=== PATIENT | female | born 1960 | race African-American/Black ===

== ENCOUNTER 2016-06-25 22:57 | Inpatient (IN) | payer BC ==
--- NOTE | ~2016-06-25 | CO ---
Unit #: [id number] #: [id number] Patient: CONSUELO JOEL [id number] [facility] [address] [place], [place] [address] [id number] I MR#: [id number] NAME: CONSUELO JOEL ROOM: CIC3 Age: 55 Sex: F Admission Date: 06/25/2016 : 1960 Attending Physician: Rosemarie Mclean M.D. Primary Care Physician: Thai Acevedo M.D. Consultation Date: 06/26/2016 CONSULTATION REPORT [facility] CONSULT The patient has requested to see a [facility] Cardiology doctor in the morning. 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 She has seen [facility] in the past, but no longer follows with anyone. She is requesting to see [facility]. According to past medical records, the patient had a cardiac catheterization on 03/11/2011 that showed nonobstructive disease. She had a cardiac stress test on 07/30/2011 which showed a small anteroseptal infarct with very mild ischemia. She had an ejection fraction of 46%. In 10/2012 she had a two-dimensional echocardiogram that an ejection fraction of 50%-55% with mild to moderate left ventricular hypertrophy, diastolic dysfunction, mild to moderate aortic regurgitation, mild mitral and tricuspid regurgitation. In 03/2003 the patient had a cardiac PET scan at [facility] that showed no ischemia or infarct and her ejection fraction was 41%. Additional past medical history includes hypertensive cardiomyopathy, hyperlipidemia, nonobstructive coronary artery disease, history of non-STEMI after her cardiac catheterization in 2010, diabetes, obesity, questionable obstructive sleep apnea and a brain aneurysm. She also has chronic bronchitis and quit smoking back in 1999. The patient reports that she had not been taking all of her medication. However, she had started taking it again a week ago after she was established with a new primary care physician. Her new primary care physician is Dr. Acevedo. The patient reports that she has been short of breath for at least one week. She reports that her shortness of breath appeared worse today. She states that she became so short of breath that she had to lie down and call for help. The patient denied any nausea, vomiting, fever, chills, cough or chest pain with her shortness of breath. The patient came to the emergency room and she was found to have a pH of 7.22, CO2 65 and pO2 70. She was placed on BiPAP. The hospitalist team is treating her for pneumonia and cardiology has been consulted for elevated BNP. The patient's EKG shows sinus tachycardia with left atrial enlargement and left ventricular hypertrophy with a rate of 113 beats per minute. Her point of care troponin was less than 0.05. Her BNP was 624. PAST MEDICAL HISTORY 1. Cardiac catheterization on 03/11/2011 showed an ejection fraction of Unit #: [id number] #: [id number] Patient: CONSUELO JOEL 60%. a. Left main normal. b. Left anterior descending artery with 20% ostial stenosis, first diagonal branch 20%. c. Circumflex artery normal. d. Right coronary artery normal. 2. Cardiac PET scan in 03/2013 at [facility] shows no ischemia or infarct. Ejection fraction 41%. 3. Two-dimensional echocardiogram in 10/2012 shows an ejection fraction of 50%-55% with mild to moderate left ventricular hypertrophy, diastolic dysfunction, mild to moderate aortic regurgitation, mitral and tricuspid regurgitation. 4. Non-ST elevation myocardial infarction after cardiac catheterization in 2010. 5. Cardiac stress test on 07/30/2011 shows small anteroseptal infarct with an ejection fraction of 46%. 6. Hypertensive cardiomyopathy. 7. Hyperlipidemia. 8. Diabetes type 2. 9. Thyroid cancer with hypothyroidism, status post thyroidectomy. 10. Gastroesophageal reflux disease. 11. Chronic bronchitis. 12. Brain aneurysm 2 x 2 mm in the posterior communicating artery on the left in 2011. 13. Right renal cyst. 14. Chronic bronchitis. 15. Reformed tobaccoism. PAST SURGICAL HISTORY 1. Cardiac catheterization as detailed above. 2. Hysterectomy. 3. Tonsillectomy. 4. Left knee surgery. 5. Thyroidectomy. 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 She reports that she did have a fall in 03/2011 and has not been working as much. She quit smoking in the year 1999. She reports that she previously smoked 1-1.5 packs per day for almost 36 yeas. She denies any alcohol or illicit drug abuse. FAMILY HISTORY The patient reports that her mother passed in her 60s from abdominal aortic aneurysm. The patient reports that her father has had tow myocardial infarctions. ALLERGIES Penicillin. HOME MEDICATIONS 1. Plavix 75 mg p.o. daily. 2. Norvasc 10 mg p.o. daily. 3. Lisinopril 10 mg p.o. daily. 4. Lopressor 25 mg p.o. daily. 5. Synthroid 300 mcg p.o. daily. 6. Victoza 1.8 mg subcutaneous daily. 7. Glipizide 10 mg p.o. b.i.d. Unit #: [id number] #: [id number] Patient: CONSUELO JOEL 8. Zocor 10 mg p.o. daily. 9. Tramadol 5 mg p.o. t.i.d. p.r.n. REVIEW OF SYSTEMS A 10-point review of systems has been done and is otherwise negative except as indicated in history of present illness. PHYSICAL EXAMINATION GENERAL: The patient is awake and alert, in no acute distress. VITALS: Temperature 97.8, heart rate 73, respiratory rate 20, blood pressure 119/75. HEENT: Head is atraumatic, normocephalic. Pupils equal, round and reactive. Extraocular movements intact. No drainage from ears or nares. NECK: Supple. Trachea midline. Normal carotid upstrokes. No lymphadenopathy or thyromegaly is appreciated. CHEST: Lungs are diminished bilaterally with crackles in the bases. No wheezes or rhonchi. HEART: S1 and S2. Regular rate and rhythm. No murmurs, rubs or gallops appreciated. ABDOMEN: Obese, soft, nontender and nondistended. Bowel sounds are positive in all four quadrants. No hepatosplenomegaly is appreciated. SKIN: Appears to be warm, dry and intact. EXTREMITIES: No clubbing, edema or cyanosis. NEUROLOGIC: The patient is alert and oriented times four. She is pleasant and conversant. No focal deficits. Cranial nerves II through XII appear to be intact. DIAGNOSTIC STUDIES IMAGING: Chest x-ray shows stable cardiomegaly with new infiltrates in the bases, right greater than left, concerning for pneumonia. LABORATORY: Vixeo-es-ngoz troponins are less than 0.05. BNP was 624. Glucose 301, BUN 16, creatinine 1.1, sodium 137, potassium 4.1, chloride 101, CO2 25, hemoglobin A1c 8.9, lactic acid 3.5. Cholesterol 206, triglycerides 99, LDL 149, HDL 37, TSH 20.74. White blood cell count 10.8, hemoglobin 13.4, hematocrit 42, platelets 329, CARDIOVASCULAR: EKG shows sinus tachycardia with LDH at a rate of 113 beats per minute. ASSESSMENT 1. Dyspnea, likely multifactorial. 2. Bilateral pneumonia, community acquired pneumonia. 3. Chronic bronchitis. 4. Fluid overload. Probable congestive heart failure. 5. Hypertensive cardiomyopathy with left ventricular ejection fraction of 50%-55% per echo in 2012. 6. Hypertension. 7. Hyperlipidemia. 8. Nonobstructive coronary artery disease per catheterization in 2010. 9. History of non-STEMI after catheterization in 2010. 10. History of cardiac PET scan in 03/2003 that showed no ischemia and ejection fraction of 41%. 11. Hypothyroidism with history of thyroid cancer, now with elevated TSH. 12. Obesity with BMI greater than 30. 13. Questionable obstructive sleep apnea. 14. Diabetes, uncontrolled. 15. History of brain aneurysm. Unit #: [id number] #: [id number] Patient: CONSUELO JOEL 16. Noncompliance. 17. Reformed tobaccoism. PLAN I have discussed this case with Dr. Juan, although the patient did not wish to see Dr. Juan at this time. [facility]iology will follow tomorrow. Will place this patient on a 1800 mL fluid restriction. Will add Lasix 40 mg IV b.i.d. Will add strict ins and outs. Will check an EKG in the morning. Will check a BMP and magnesium in the morning. Two-dimensional echocardiogram has already been ordered. Will continue the patient on her current cardiac medications as she is on Plavix, Norvasc, lisinopril, Lopressor and Zocor. Dictated by... Ne Laureano A.P.R.N. AM/byron TD: 06/26/2016 13:37 JOB #: [id number] CONSULTATION REPORT Page 1 of 1 X Ne Laureano APRN X CONSULTATION REPORT
--- NOTE | ~2016-06-25 | CR72 ---
[facility] A Service of [facility] RADIOLOGY TEXT RESULTS PATIENT: CONSUELO JOEL LOCATION: [address] : [birth year] UNIT #: [id number] AGE: [address]: Ke Laureano MD SEX: F ORDER DR: [id number] [facility] [address] [place], [place] [address] [id number] I MR#: [id number] Acc #: [id number] NAME: CONSUELO JOEL : 1960 SEX: F STUDY DATE/TIME: 06/25/2016 23:03 UNIT: [facility] ROOM: [facility] STUDY DESCRIPTION: CR Chest Single View Portable Attending Physician: Ke Laureano M.D. Ordering Physician: Ed Aneudy Webber M.D. Primary Care Physician: Thai Acevedo M.D. MEDICAL IMAGING REPORT This report is preliminary unless electronic signature is present EXAM Portable chest 06/25 at 23:03 INDICATIONS Shortness of air that started today. History of thyroid cancer and hypertension. FINDINGS AP portable chest compared with 07/03/2015. Cardiomegaly is stable. New infiltrates are noted in the bases. These are concerning for pneumonia. No pneumothorax is seen. There is some atherosclerotic disease in the aorta. IMPRESSION Stable cardiomegaly with new infiltrates in the bases, right greater than left, concerning for pneumonia. Dictated by... Wayne Rodríguez Jr., M.D. THIS IS AN ELECTRONICALLY VERIFIED REPORT Wayne Rodríguez Jr., M.D. at 06/26/2016 2:40 AM MARQUIS/vikas TD: 06/26/2016 02:32 JOB #: [id number] MEDICAL IMAGING REPORT Page 1 of 1 COPY
--- NOTE | ~2016-06-25 | EKG ---
PATIENT: CONSUELO JOEL UNIT #: [id number] Ventricular Rate: 71 BPM Atrial Rate: 71 BPM P-R Interval: 148 ms QRS Duration: 92 ms Q-T Interval: 462 ms QTC Calculation(Bezet): 502 ms P [place]: 64 degrees Calculated R [place]: 57 degrees Calculated T [place]: 87 degrees Diagnosis Line: Normal sinus rhythm Diagnosis Line: Voltage criteria for left ventricular hypertrophy Diagnosis Line: T wave abnormality, consider anterolateral Diagnosis Line: ischemia Diagnosis Line: Prolonged QT Diagnosis Line: Abnormal ECG Diagnosis Line: When compared with ECG of 25-JUN-2016 23:15, Diagnosis Line: Vent. rate has decreased BY 42 BPM Diagnosis Line: ST no longer depressed in Lateral leads Diagnosis Line: Nonspecific T wave abnormality no longer evident Diagnosis Line: in Inferior leads Diagnosis Line: Nonspecific T wave abnormality has replaced Diagnosis Line: inverted T waves in Lateral leads Diagnosis Line: Confirmed by NAYA SWAN MD ([id number]) on 06/29/2016 Diagnosis Line: 8:02:29 PM INTERPRETING MD: BENY ZHONG
--- NOTE | ~2016-06-25 | DS ---
Unit #: [id number] #: [id number] Patient: CONSUELO JOEL [id number] [address] [place], [place] [address] [id number] I MR#: [id number] NAME: CONSUELO JOEL ROOM: [facility] Age: 55 Sex: F Admission Date: 06/25/2016 : 1960 Discharge Date: 06/29/2016 Attending Physician: Rosemarie Mclean M.D. Primary Care Physician: Thai Acevedo M.D. DISCHARGE SUMMARY REASON FOR ADMISSION Dyspnea. HISTORY OF PRESENT ILLNESS/HOSPITAL COURSE The patient is a very pleasant 55-year-old female with underlying history of hypertension, hyperlipidemia, morbid obesity, hypothyroidism who states that she had not been taking her routine medications for quite some time. She stated that she had difficulty with breathing. She went and had some blood work done as an outpatient through her primary care physician, Dr. Acevedo, and was noted to have a TSH of 20, A1C of 8.9. She stated that she had not taken her medications very regularly. Dr. Acevedo asked her to go to the emergency room for evaluation. When she was evaluated, she was noted to have a pH of 7.22, CO2 of 65, pO2 of 70. She was placed on BiPAP, and subsequently consultation was placed to Dr. Draper and cyrus for pulmonary services. She was subsequently transferred to the ICU, off and on placed on BiPAP, gradually weaned, placed on O2 via nasal cannula and subsequently transitioned to telemetry floor. While she was there, she was placed on IV steroids, IV Levaquin. She did show improvement in her overall respiratory status. She received DuoNeb aerosol solutions, as well. In regard to her overall respiratory status, she has improved. At time of discharge we will give her home nebulizer, DuoNeb aerosols, Symbicort, as well as a prednisone burst and Levaquin prescription. In regard to her dyspnea, consultation was also placed to Dr. Morales and cyrus of [facility] in regard to her prior history of coronary artery disease. Off and on she has seen different cardiologists in the past but has not always followed up as she should. Therefore, we consulted them for further evaluation. She did undergo two-D echocardiogram showing systolic function reduced at 35% to 40%, [id number] aortic regurgitation, as well as [id number]-[id number]-[id number] mitral regurgitation. In regard to the same, recommendation was made for cardiac catheterization. Dr. Martinez performed cardiac catheterization yesterday, on 06/28/2016, which did show normal coronaries, ejection fraction 40%. Medical management was recommended. At this point in time she has been optimized on medical therapy. She has been cleared from pulmonary, as well as the cardiology service, for discharge. Overall her prognosis is totally dependent on her willingness to take her medications as prescribed. She is well aware of the same. Unit #: [id number] #: [id number] Patient: CONSUELO JOEL FINAL DISCHARGE DIAGNOSES 1. Dyspnea, multifactorial in origin, likely secondary to combination of systolic heart failure, asthma exacerbation, acute respiratory failure, morbid obesity, restrictive lung disease. 2. Prior history of asthma. 3. Diabetes, poorly controlled. 4. Hypothyroidism. 5. Systolic heart failure. 6. Restrictive lung disease secondary to elevated body mass index. 7. Hyperlipidemia. 8. Hypertension. 9. Morbid obesity. 10. Longstanding history of noncompliance. FINAL DISCHARGE MEDICATIONS 1. DuoNeb aerosol solution q.6 scheduled. 2. Norvasc 10 mg p.o. daily. 3. Toprol XL 50 mg p.o. b.i.d. 4. Lasix 40 mg p.o. b.i.d. 5. Levemir 8 units subcu b.i.d. 6. Zestril 10 mg p.o. daily. 7. Zocor 10 mg p.o. q.h.s. 8. Ultram 50 mg p.o. q.8 p.r.n. 9. Plavix 75 mg p.o. daily. 10. Glipizide 10 mg p.o. b.i.d. 11. Synthroid 300 mcg p.o. daily. 12. Victoza daily. 13. Levaquin 750 mg p.o. daily x7 days. 14. Prednisone 40 mg p.o. daily x5 days. 15. Symbicort 160/4.5 mcg 2 puffs b.i.d. 16. Proventil HFA 1-2 puffs q.6 p.r.n. DISCHARGE CONDITION Stable. DISCHARGE DISPOSITION Home. Dictated by... Imran S. Vinay, M.D. ISN/katey TD: 06/29/2016 12:06 JOB #: [id number] Unit #: [id number] #: [id number] Patient: CONSUELO JOEL DISCHARGE SUMMARY Page 1 of 1 X Rosemarie Mclean MD X DISCHARGE SUMMARY
--- NOTE | ~2016-06-25 | CO ---
Unit #: [id number] #: [id number] Patient: CONSUELO JOEL [id number] [address] [place], [place] [address] [id number] I MR#: [id number] NAME: CONSUELO JOEL [facility] Age: 55 Sex: F Admission Date: 06/25/2016 : 1960 Attending Physician: Rosemarie Mclean M.D. Primary Care Physician: Thai Acevedo M.D. Consultation Date: 06/26/2016 CONSULTATION REPORT REASON FOR CONSULT ICU management. CHIEF COMPLAINT Shortness of breath. HISTORY OF PRESENT ILLNESS This is a 55-year-old -[place] female with past medical history significant for hypertension, hyperlipidemia, morbid obesity, who presented to the emergency room with difficulty breathing. Patient stated that her symptoms started a few days ago but yesterday she was unable to catch her breath. She denied any fever, chills or night sweats, no cough but she had mild chest heaviness. Patient denied any sore throat or runny nose. No exposure to sick patient around. She stated that she came yesterday to have her routine labs done and she stopped by the ER. At that time her sats were in the mid 90s so she went home. However, soon after she lay down at home she was unable to breathe. Patient denied any history of sleep apnea however she has never been checked for that. She used to smoke heavily but she quit in 1999. She has a history of asthma and she takes some rescue inhalers at home and she is unsure if she has COPD. PAST MEDICAL HISTORY 1. Asthma. 2. Questionable COPD. 3. Diabetes. 4. Hypothyroidism. 5. Coronary artery disease. 6. Hyperlipidemia. 7. Hypertension. 8. Morbid obesity. 9. Noncompliance. PAST SURGICAL HISTORY 1. Thyroidectomy. 2. Hysterectomy. Unit #: [id number] #: [id number] Patient: CONSUELO JOEL 3. Tonsillectomy. 4. Left knee surgery. 5. Exploratory laparotomy. 6. Cardiac cath. SOCIAL HISTORY Patient quit smoking in 1999. She does not drink or use street drugs. FAMILY HISTORY Diabetes and coronary artery disease. ALLERGIES Penicillin. HOME MEDICATION 1. Norvasc. 2. Plavix. 3. Lisinopril. 4. Lopressor. 5. Synthroid. 6. Victoza. 7. Glipizide. 8. Zocor. 9. Ultram. REVIEW OF SYSTEMS Twelve-point review of systems was obtained and was negative except for what was mentioned in the HPI. PHYSICAL EXAMINATION GENERAL: The patient is in respiratory distress but she is feeling more comfortable right now on BiPAP. VITAL SIGNS: Blood pressure 132/62, respiratory rate 29, O2 saturation 98% on BiPAP. HEENT: Normocephalic and atraumatic. PERRLA. EOMI. NECK: Supple. No JVD. No lymphadenopathy. CHEST: Diminished breath sounds mainly at the mid and lower zones. HEART: S1, S2. No murmur, gallops or rubs. ABDOMEN: Soft, nontender. Bowel sound is positive. No hepatosplenomegaly. EXTREMITIES: No edema or cyanosis. SKIN: No rashes. 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 No focal motor/sensory deficits. DIAGNOSTIC STUDIES LABORATORY: Blood gas pH 7.22/65/70. Glucose 301, creatinine 1.1, CO2 25, white blood count 10.8. IMAGING: Chest x-ray is concerning for bilateral lower infiltrate. ASSESSMENT 1. Acute hypoxic hypercarbic respiratory failure. 2. Community-acquired pneumonia. 3. Asthma exacerbation. 4. Questionable chronic obstructive pulmonary disease. 5. Coronary artery disease. 6. Uncontrolled diabetes. 7. Hyperlipidemia. Unit #: [id number] #: [id number] Patient: CONSUELO JOEL 8. Hypertension. 9. Morbid obesity. 10. Presumed obstructive sleep apnea. PLAN 1. Patient will be continued on BiPAP with short breaks for meals and drinking. 2. Patient will need sleep study as an outpatient as she likely has underlying sleep apnea. 3. Aggressive bronchodilator and mucolytics. 4. IV Levaquin. Will follow blood culture, Streptococcus and Legionella urine antigen test. 5. Will decrease IV steroid due to uncontrolled blood sugar. 6. Again patient will need sleep study and PFTS as an outpatient. She likely has underlying asthma plus/minus COPD. 7. DVT prophylaxis. I would like to thank Dr. Hilliard for allowing me to be part of this patient's care. Dictated by... Lee Bobo TD: 06/26/2016 16:09 JOB #: [id number] CONSULTATION REPORT Page 1 of 1 X JANKI CLEMENT MD CONSULTATION REPORT
--- NOTE | ~2016-06-25 | EKG ---
PATIENT: CONSUELO JOEL UNIT #: [id number] Ventricular Rate: 113 BPM Atrial Rate: 113 BPM P-R Interval: 148 ms QRS Duration: 98 ms Q-T Interval: 352 ms QTC Calculation(Bezet): 482 ms P [place]: 29 degrees Calculated R [place]: 4 degrees Calculated T [place]: 139 degrees Diagnosis Line: Sinus tachycardia Diagnosis Line: Possible Left atrial enlargement Diagnosis Line: Left ventricular hypertrophy Diagnosis Line: ST and T wave abnormality, consider lateral ischemia Diagnosis Line: Abnormal ECG Diagnosis Line: No previous ECGs available Diagnosis Line: Confirmed by PIETRO FLOREZ MD ([id number]) on 06/26/2016 Diagnosis Line: 4:42:58 PM INTERPRETING MD: GAUTAM ZHONG
--- NOTE | ~2016-06-25 | HP ---
Unit #: [id number] #: [id number] Patient: CONSUELO JOEL [id number] [address] [place], [place] [address] [id number] I MR#: [id number] NAME: CONSUELO JOEL ROOM: [facility] Age: 55 Sex: F Admission Date: 06/25/2016 : 1960 Attending Physician: Rosemarie Mclean M.D. Primary Care Physician: Thai Acevedo M.D. HISTORY AND PHYSICAL CHIEF COMPLAINT Shortness of breath. HISTORY OF PRESENT ILLNESS This is a 55-year-old female who has a history of hypertension, dyslipidemia, obesity, some mild coronary artery disease, hypothyroid. She said she was not taking medication for a while. She went to see her primary physician. She was given medication. She started taking all her medication, hypothyroid, blood pressure and diabetic medication one week ago. She was given a prescription for blood test today. She did the blood test as an outpatient today which was TSH 20, A1c 8.9. She said she has been having some shortness of breath for a one-week period of time, but it got worse today. Then eventually she decided to come to the emergency room. On workup she was found to have pH 7.22, CO2 65, PO2 70. She was placed on BiPAP. She denies chest pain. She has some cough, but she denies nausea, vomiting, chest pain, diaphoresis, palpitations, headache, loss of consciousness or any other complaint. PAST MEDICAL HISTORY 1. History of asthma. 2. History of uncontrolled diabetes. 3. History of hypothyroid. 4. Mild coronary artery disease. 5. Dyslipidemia. 6. Hypertension. 7. Morbid obesity. 8. History of noncompliance. PAST SURGICAL HISTORY 1. History of thyroidectomy for thyroid cancer. 2. Hysterectomy. 3. Tonsillectomy. 4. Left knee surgery. 5. Exploratory laparotomy in the past. 6. History of cardiac catheterization in the past. SOCIAL HISTORY The patient lives at home. She said she quit smoking in 2009. She does not drink alcohol. No history of drug use. FAMILY HISTORY She denies a history of diabetes, coronary artery disease in the family. Unit #: [id number] #: [id number] Patient: CONSUELO JOEL ALLERGIES Penicillin. HOME MEDICATIONS 1. Norvasc 10 mg p.o. daily. 2. Plavix 75 mg daily. 3. Lisinopril 10 mg daily. 4. Lopressor 15 mg daily. 5. Synthroid 300 mcg daily. 6. Victoza 1.8 mg subcutaneous daily. 7. Glipizide 10 mg b.i.d. 8. Zocor 10 mg daily. 9. Ultram 50 mg t.i.d. REVIEW OF SYSTEMS Review of systems is negative except as per history of present illness. PHYSICAL EXAMINATION GENERAL: Middle-aged female lying in the bed comfortably. Currently not in any distress. She is alert, awake and oriented times three. VITALS: Currently, temperature afebrile, heart rate 125, respiratory rate 26, blood pressure 194/120, oxygen saturation 94% on 4 liters. HEENT: Pupils equal and reactive to light and accommodation. Head is normocephalic, atraumatic. NECK: Supple. No jugular venous distension. No thyromegaly. LUNGS: Decreased air entry bilaterally with scattered wheeze. HEART: S1 and S2. Regular rate and rhythm. Tachycardia. SKIN: No rash. Warm and dry. EXTREMITIES: Inspection normal. No cyanosis. No clubbing. No edema. NEUROLOGIC: Alert and oriented times four. Cranial nerves II through XII intact. No focal neurologic deficits. Power is 5/5 on both sides. PSYCHIATRIC: Normal mood. Normal affect. DIAGNOSTIC STUDIES IMAGING: Chest x-ray shows bilateral infiltrates, right more than left. LABORATORY: White blood cell count 10, hemoglobin 13, hematocrit 40, platelets 239, lactic acid level 2.6. Chemistry shows sodium 136, potassium 3.7, chloride 99, glucose 406, BUN 14, creatinine 1.6. LFTs within normal limits. INR 1. Troponin 0.05. ABG shows pH 7.22, CO2 65, pO2 70. A1C this morning 8.9. She has a TSH 20.74. ASSESSMENT/PLAN 1. Acute hypoxic hypercapnic respiratory failure. Will place the patient on BiPAP. Admit the patient to the ICU. Ask pulmonary, Dr. Draper, to evaluate. 2. Bilateral pneumonia. Bilateral basilar infiltrates, right more than left. Start on IV Levaquin. 3. Acute exacerbation of asthma. 4. Uncontrolled diabetes. A1c 8.9. She was not taking medication and in view of that will continue home medication, glipizide and Victoza. Place on sliding scale. 5. Hypothyroid. TSH is 20 today, but she said she stopped taking thyroid medication one week ago and in view of that will continue Synthroid 300 mcg daily. 6. History of mild coronary artery disease. 7. Dyslipidemia. Again, noncompliant. LDL was done today, which showed LDL 149. Unit #: [id number] #: [id number] Patient: CONSUELO JOEL 8. Hypertension with increased blood pressure. Resume home medication, Norvasc, lisinopril and Lopressor. Monitor. 9. Morbid obesity. 10. Noncompliant with medication. 11. DVT prophylaxis. Will place the patient on Lovenox. Dictated by Lee Silva TD: 06/26/2016 07:43 JOB #: [id number] HISTORY AND PHYSICAL Page 1 of 1 X X HISTORY AND PHYSICAL
[2016-06-25 22:56] LABS: ARTERIAL BLD GAS O2 SATURATION 89.6 % (90.0-100.0); ARTERIAL BLOOD GAS CARBOXY HB 0.5 %sat (0.0-9.0); ARTERIAL BLOOD GAS HCO3 27.4 mmol/L; ARTERIAL BLOOD GAS MET HB 0.8 %sat (0.0-2.0); ARTERIAL BLOOD GAS pH 7.229 (7.350-7.450)
[2016-06-25 22:57] LABS: ARTERIAL BLOOD GAS ALLEN TEST NORMAL; ARTERIAL BLOOD GAS ART SITE RIGHT RADIAL; ARTERIAL BLOOD GAS DELIVERY NASAL CANNULA; ARTERIAL BLOOD GAS PCO2 65.6 mmHg (35.0-45.0); ARTERIAL BLOOD GAS PO2 70.6 mmHg (80.0-100); ARTERIAL DRAW? YES
[~2016-06-25 22:57] MED LIST changes: -COMBIVENT U/D3 M2; -LASIX PO; -LEVEMIR FL100 UNIT/1 SUBQ; -TOPROL XL50 MG PO; -TRAMADOL HCL50 M1 PO; -ULTRAM PO
[2016-06-25 23:07] LABS: POC - CKMB <1.0 ng/mL (0.0-7.9); POC - TROPONIN <0.05 ng/mL (<=0.05)
[2016-06-25 23:14] LABS: PARTIAL THROMBOPLASTIN TIME 23.8 SECONDS (23.5-31.3); PROTHROMBIN TIME (PATIENT) 10.2 SECONDS (9.6-11.5)
[2016-06-25 23:23] LABS: ALBUMIN SERUM 4.4 g/dL (3.5-5.0); BILIRUBIN, DIRECT 0.2 mg/dL (0.0-0.2); BILIRUBIN,INDIRECT 0.5 mg/dL (0.0-0.9); BILIRUBIN,TOTAL 0.7 mg/dL (0.2-2.0); BUN/CREATININE RATIO 11.42; CALCIUM SERUM 8.3 mg/dL (8.4-10.2); CREATININE SERUM 1.4 mg/dL (0.6-1.4); GLOM FILT RATE Estimated 48.6 mL/min (>60); POTASSIUM 3.7 mmol/L (3.5-5.1); PROTEIN TOTAL SERUM 6.6 g/dL (6.0-8.3)
[2016-06-25 23:31] LABS: BASOPHIL% 0.4 % (0-2.5); EOSINOPHIL# 0.1 X10e3 (0-0.7); EOSINOPHIL% 0.8 % (0.0-7.0); HEMOGLOBIN 13.4 gm/dL (12.0-16.0); LYMPHOCYTE# 5.8 X10e3 (1.0-3.5); LYMPHOCYTE% 53.6 % (17.0-45.0); MEAN CELL VOLUME 90.1 FL (83-96); MEAN CORPUSCULAR HEMOGLOBIN 28.8 PG (28-34); MEAN PLATELET VOLUME 10.4 FL (6.5-11.5); MONOCYTE# 0.5 X10e3 (0-1.0); MONOCYTE% 4.6 % (3.0-12.0); NEUTROPHIL# 4.4 X10e3 (1.5-7.1); NEUTROPHIL% 40.6 % (40-75); PLATELET COUNT 239 X10e3 (140-420); RED BLOOD COUNT 4.66 X10e (3.90-5.30); RED CELL DISTRIBUTION WIDTH 14.9 % (11.0-15.5)
[2016-06-25 23:32] LABS: DIFF IND YES; WHITE BLOOD COUNT 10.8 X10e3 (4.0-10.5)
[2016-06-25 23:36] LABS: DIFFERENTIAL COMMENT ATY.LYMPHS; PLATELET ESTIMATE NORMAL (NORMAL); STOMATOCYTE PRESENT
[2016-06-25] MEDS ORDERED: TRAMADOL HCL50 M1 PO (23:39)
[2016-06-26 01:54] LABS: POC - CKMB <1.0 ng/mL (0.0-7.9); POC - TROPONIN <0.05 ng/mL (<=0.05)
[2016-06-26 09:35] LABS: BUN/CREATININE RATIO 14.54; CALCIUM SERUM 8.8 mg/dL (8.4-10.2); CREATININE SERUM 1.1 mg/dL (0.6-1.4); POTASSIUM 4.1 mmol/L (3.5-5.1)
[2016-06-27 04:55] LABS: BASOPHIL% 0.2 % (0-2.5); HEMATOCRIT 37.7 % (35.0-45.0); HEMOGLOBIN 11.9 gm/dL (12.0-16.0); LYMPHOCYTE# 1.4 X10e3 (1.0-3.5); LYMPHOCYTE% 9.7 % (17.0-45.0); MEAN CELL VOLUME 89.8 FL (83-96); MEAN CORPUSCULAR HEMOGLOBIN 28.3 PG (28-34); MEAN CORPUSCULAR HGB CONC 31.5 g/dL (30-36); MEAN PLATELET VOLUME 11.2 FL (6.5-11.5); MONOCYTE# 0.6 X10e3 (0-1.0); NEUTROPHIL% 86.1 % (40-75); PLATELET COUNT 205 X10e3 (140-420); RED CELL DISTRIBUTION WIDTH 14.7 % (11.0-15.5)
[2016-06-27 04:56] LABS: DIFF IND NO
[2016-06-27 06:16] LABS: BUN/CREATININE RATIO 22.72; CALCIUM SERUM 9.4 mg/dL (8.4-10.2); CREATININE SERUM 1.1 mg/dL (0.6-1.4); MAGNESIUM 2.2 mg/dL (1.6-3.0); POTASSIUM 4.6 mmol/L (3.5-5.1)
[2016-06-27 08:01] LABS: LEGIONELLA AG URINE NEG (NEG)
[2016-06-28 07:51] LABS: BASOPHIL% 0.3 % (0-2.5); HEMATOCRIT 40.4 % (35.0-45.0); HEMOGLOBIN 12.6 gm/dL (12.0-16.0); LYMPHOCYTE# 1.5 X10e3 (1.0-3.5); LYMPHOCYTE% 11.2 % (17.0-45.0); MEAN CELL VOLUME 90.2 FL (83-96); MEAN CORPUSCULAR HEMOGLOBIN 28.2 PG (28-34); MEAN CORPUSCULAR HGB CONC 31.3 g/dL (30-36); MEAN PLATELET VOLUME 11.1 FL (6.5-11.5); MONOCYTE# 0.4 X10e3 (0-1.0); MONOCYTE% 2.8 % (3.0-12.0); NEUTROPHIL# 11.4 X10e3 (1.5-7.1); NEUTROPHIL% 85.7 % (40-75); PLATELET COUNT 210 X10e3 (140-420); RED BLOOD COUNT 4.48 X10e (3.90-5.30); WHITE BLOOD COUNT 13.3 X10e3 (4.0-10.5)
[2016-06-28 07:53] LABS: DIFF IND NO
[2016-06-28 08:28] LABS: ALBUMIN SERUM 4.1 g/dL (3.5-5.0); BILIRUBIN,TOTAL 0.9 mg/dL (0.2-2.0); CALCIUM SERUM 9.7 mg/dL (8.4-10.2); CREATININE SERUM 1.1 mg/dL (0.6-1.4); POTASSIUM 4.4 mmol/L (3.5-5.1); PROTEIN TOTAL SERUM 6.2 g/dL (6.0-8.3)
[2016-06-29] MEDS ORDERED: LEVAQUIN750 MG PO (10:49)
[2016-06-29] MEDS ORDERED: SYMBICORT INH (10:50)
[2016-06-29] MEDS ORDERED: PREDNISONE PO (10:50)
[2016-06-29] MEDS ORDERED: LASIX PO (10:52)
[2016-06-29] MEDS ORDERED: ALBUTEROL17 GM INH (10:52)
[2016-06-29] MEDS ORDERED: TOPROL XL50 MG PO (10:53)
[2016-06-29] MEDS ORDERED: COMBIVENT U/D3 M2 (10:54)
[2016-06-29] MEDS ORDERED: LEVEMIR FL100 UNIT/1 SUBQ (10:57)
[2016-06-29] MEDS ORDERED: ULTRAM PO (10:57)
== END 2016-06-29 16:32 | disposition home or self-care (01) | DRG 189 ==
LOC: CED 22:57 → CICCU3 23:45 → C3A PCU 06-27 13:49
PROVIDERS: Emergency Medicine; Family Medicine; Internal Medicine; Internal Medicine Pulmonary Disease
PROC: B24BZZZ Ultrasonography of Heart with Aorta (ICD-10-PCS; 2016-06-27)
PROC: 4A023N7 Measurement of Cardiac Sampling and Pressure, Left Heart, Percutaneous Approach (ICD-10-PCS; principal; 2016-06-28)
PROC: B215YZZ Fluoroscopy of Left Heart using Other Contrast (ICD-10-PCS; 2016-06-28)
PROC: B211YZZ Fluoroscopy of Multiple Coronary Arteries using Other Contrast (ICD-10-PCS; 2016-06-28)
DX: J96.01 Acute respiratory failure with hypoxia (principal); J18.9 Pneumonia, unspecified organism; I11.0 Hypertensive heart disease with heart failure; J44.0 Chronic obstructive pulmonary disease with (acute) lower respiratory infection; J45.901 Unspecified asthma with (acute) exacerbation; I50.20 Unspecified systolic (congestive) heart failure; E11.65 Type 2 diabetes mellitus with hyperglycemia; I11.9 Hypertensive heart disease without heart failure; Z68.41 Body mass index [BMI] 40.0-44.9, adult; J44.1 Chronic obstructive pulmonary disease with (acute) exacerbation; J96.02 Acute respiratory failure with hypercapnia; Z87.891 Personal history of nicotine dependence; E66.01 Morbid (severe) obesity due to excess calories; J98.4 Other disorders of lung; E78.5 Hyperlipidemia, unspecified; Z91.14 Patient's other noncompliance with medication regimen; I25.10 Atherosclerotic heart disease of native coronary artery without angina pectoris; I08.0 Rheumatic disorders of both mitral and aortic valves; Z79.4 Long term (current) use of insulin; K21.9 Gastro-esophageal reflux disease without esophagitis; G47.33 Obstructive sleep apnea (adult) (pediatric); Z90.710 Acquired absence of both cervix and uterus; Z88.0 Allergy status to penicillin; I25.2 Old myocardial infarction; Z85.850 Personal history of malignant neoplasm of thyroid; E89.0 Postprocedural hypothyroidism; Z83.3 Family history of diabetes mellitus; Z82.49 Family history of ischemic heart disease and other diseases of the circulatory system
CPT/HCPCS: 36415; 36600; 71010; 80048; 80053; 80076; 82553; 82803; 82947; 83605; 83735; 83880; 84484; 85025; 85610; 85730; 87040; 87449; 87899; 93005; 93306; 94640; 94644; 94660; 94760; 96374; 99285; C1760; C1769; C1894; J0360; J1644; J1650; J1815; J1940; J1956; J2250; J2920; J2930; J3010

== ENCOUNTER → 2016-06-25 | Outpatient (CLI) | payer BC ==
[~2016-06-25] MED LIST: ACETAMINOPHEN PO; ACTOS/METFORMIN PO; ALBUTEROL MININEB NEB; ALBUTEROL17 GM INH; AMBIEN PO; ASPIRIN EC81 M1 PO; ASPIRIN81 M1 PO; BACTRIM DS TABL1 TA1 PO; BENZONATATE PO; BROMFED DM COU118 ML PO; BYSTOLIC5 MG PO; CADUET PO; CIPRO PO; COATED ASPIRIN325 M1 PO; COLACE PO; COMBIVENT INH14.7 GM INH; COMBIVENT MININEB INH; COMBIVENT U/D3 M2; CYMBALTA PO; DUONEB 2.5-0.5 M3 ML NEB; GLIPIZIDE10 MG PO; GLUCOTROL PO; GLYBURIDE PO; GUAIFENESIN LA600 M1 PO; HCTZ PO; HYDROCODON-ACE1 EAC9 PO; IBUPROFEN PO; LANTUS100 U/ML SUBQ; LASIX PO; LASIX20 MG PO; LEVAQUIN PO; LEVAQUIN750 MG PO; LEVEMIR FL100 UNIT/1 SUBQ; LIPITOR PO; LISINOPRIL10 MG PO; LISINOPRIL20 MG PO; LOPRESSOR PO; MAXZIDE 37.5 M1 EACH PO; MEDROL DOSEPAK4 MG PO; METOPROLOL SUCC25 MG PO; METOPROLOL TAR25 MG PO; MILK OF MAGNESIA PO; MOTION RELIEF25 MG PO; NORVASC PO; NORVASC10 MG PO; PLAVIX PO; PREDNISONE PO; PRINZIDE; ROBITUSSIN-DM120 ML PO; SYMBICORT INH; SYNTHROID PO; SYNTHROID300 MCG PO; TAMIFLU75 M1 PO; TOPROL XL PO; TOPROL XL50 MG PO; TRAMADOL HCL50 M1 PO; ULTRAM PO; VICTOZA0.6 MG/0.1 SQ; VICTOZA0.6 MG/0.1 SUBQ; VOLTAREN25 MG PO; ZESTORETIC PO; ZITHROMAX PO; ZOCOR PO; ZOCOR10 MG PO; ZOFRAN ODT4 MG PO; ZOFRAN ODT4 MG/UDTAB PO
[2016-06-25 09:37] LABS: EOSINOPHIL# 0.1 X10e3 (0-0.7); EOSINOPHIL% 1.6 % (0.0-7.0); HEMATOCRIT 42.2 % (35.0-45.0); HEMOGLOBIN 13.5 gm/dL (12.0-16.0); MEAN CELL VOLUME 89.7 FL (83-96); MEAN CORPUSCULAR HEMOGLOBIN 28.6 PG (28-34); MEAN CORPUSCULAR HGB CONC 31.9 g/dL (30-36); MONOCYTE# 0.3 X10e3 (0-1.0); MONOCYTE% 6.8 % (3.0-12.0); NEUTROPHIL% 45.6 % (40-75); PLATELET COUNT 212 X10e3 (140-420); RED BLOOD COUNT 4.71 X10e (3.90-5.30); RED CELL DISTRIBUTION WIDTH 14.7 % (11.0-15.5); WHITE BLOOD COUNT 4.4 X10e3 (4.0-10.5)
[2016-06-25 09:47] LABS: DIFF IND NO
[2016-06-25 11:09] LABS: ALBUMIN SERUM 4.1 g/dL (3.5-5.0); BILIRUBIN,TOTAL 1.2 mg/dL (0.2-2.0); BUN/CREATININE RATIO 17.77; CREATININE SERUM 0.9 mg/dL (0.6-1.4); GLOM FILT RATE Estimated 82.9 mL/min (>60); POTASSIUM 4.4 mmol/L (3.5-5.1)
[2016-06-25 12:09] LABS: FOLATE (FOLIC ACID) 8.8 ng/mL (>5.8)
== END | disposition home or self-care (01) ==
LOC: CLAB 09:02
PROVIDERS: Family Medicine
DX: E78.2 Mixed hyperlipidemia (principal); E11.65 Type 2 diabetes mellitus with hyperglycemia; M23.8X2 Other internal derangements of left knee; R06.00 Dyspnea, unspecified
CPT/HCPCS: 36415; 80053; 80061; 82043; 82607; 82746; 83036; 84443; 85025

== ENCOUNTER → 2016-07-14 | Outpatient (CLI) | payer BC ==
[~2016-07-14] MED LIST changes: +COMBIVENT U/D3 M2; +LASIX PO; +LEVEMIR FL100 UNIT/1 SUBQ; +TOPROL XL50 MG PO; +TRAMADOL HCL50 M1 PO; +ULTRAM PO
[2016-07-14 15:30] LABS: BASOPHIL% 0.5 % (0-2.5); DIFF IND NO; EOSINOPHIL# 0.1 X10e3 (0-0.7); EOSINOPHIL% 2.1 % (0.0-7.0); HEMOGLOBIN 12.8 gm/dL (12.0-16.0); LYMPHOCYTE# 2.4 X10e3 (1.0-3.5); LYMPHOCYTE% 42.4 % (17.0-45.0); MEAN CELL VOLUME 89.3 FL (83-96); MEAN CORPUSCULAR HEMOGLOBIN 28.7 PG (28-34); MEAN CORPUSCULAR HGB CONC 32.1 g/dL (30-36); MONOCYTE# 0.5 X10e3 (0-1.0); MONOCYTE% 8.7 % (3.0-12.0); NEUTROPHIL# 2.6 X10e3 (1.5-7.1); NEUTROPHIL% 46.3 % (40-75); PLATELET COUNT 230 X10e3 (140-420); RED BLOOD COUNT 4.48 X10e (3.90-5.30); RED CELL DISTRIBUTION WIDTH 14.2 % (11.0-15.5); WHITE BLOOD COUNT 5.7 X10e3 (4.0-10.5)
[2016-07-14 15:49] LABS: ALBUMIN SERUM 3.9 g/dL (3.5-5.0); BILIRUBIN,TOTAL 1.2 mg/dL (0.2-2.0); BUN/CREATININE RATIO 13.33; CREATININE SERUM 0.9 mg/dL (0.6-1.4); GLOM FILT RATE Estimated 82.9 mL/min (>60); POTASSIUM 4.1 mmol/L (3.5-5.1); PROTEIN TOTAL SERUM 6.4 g/dL (6.0-8.3)
[2016-07-14 16:46] LABS: FOLATE (FOLIC ACID) 11.8 ng/mL (>5.8)
== END | disposition home or self-care (01) ==
LOC: CLAB 14:41
PROVIDERS: Family Medicine
DX: I50.32 Chronic diastolic (congestive) heart failure (principal); E78.2 Mixed hyperlipidemia; E11.65 Type 2 diabetes mellitus with hyperglycemia
CPT/HCPCS: 36415; 80053; 82607; 82746; 85025

== ENCOUNTER → 2016-08-19 | Outpatient (CLI) | payer BC ==
--- NOTE | ~2016-08-19 | CT57 ---
[facility] A Service [facility] RADIOLOGY TEXT RESULTS PATIENT: CONSUELO JOEL LOCATION: [facility] : 58 UNIT #: [id number] AGE: [address]: Ashlyn Draper MD SEX: F ORDER DR: [id number] [facility] [address] [facility]. [place], [place] [address] [id number] O MR#: [id number] [facility] #: [id number] NAME: CONSUELO JOEL. : 1960 SEX: F STUDY DATE/TIME: 08/19/2016 16:07 UNIT: [facility] ROOM: STUDY DESCRIPTION: CT Chest Wo Cont Attending Physician: Ashlyn Draper M.D. Referring Physician: Ashlyn Draper M.D. Ordering Physician: Ashlyn Draper M.D. Primary Care Physician: Thai Acevedo M.D. MEDICAL IMAGING REPORT This report is preliminary unless electronic signature is present EXAM CT chest without contrast INDICATION Shortness of air. Pneumonia follow up. PROCEDURE Unenhanced CT of the chest. This CT examination was performed with one or more of the following radiation dose reduction techniques: automatic exposure control, adjustment of mA and/or kV according to patient size, and iterative reconstruction. COMPARISON 07/28/2014. FINDINGS Centrilobular emphysema. There is linear scarring or atelectasis in the lingula. There is some scarring at the lateral left lung base. No dense consolidation. There is a 3 mm ground-glass nodule in the right upper lobe that is unchanged. No pleural fluid or pneumothorax. No adenopathy. Cardiomegaly with coronary artery calcification. No acute findings in the included upper abdomen. There is a 4 cm cyst in the anterior right kidney. The cyst contains a few thin wall calcifications. No aggressive appearing bone lesion. IMPRESSION 1. No acute findings in the chest. No dense consolidation. 2. Emphysema. 3. Other incidental findings are detailed above. Dictated by... Neal Junior M.D. [facility] A Service of [facility] RADIOLOGY TEXT RESULTS PATIENT: CONSUELO JOEL LOCATION: [facility] : 58 UNIT #: [id number] AGE: [address]: Ashlyn Draper MD SEX: F ORDER DR: THIS IS AN ELECTRONICALLY VERIFIED REPORT Neal Junior M.D. at 08/24/2016 2:31 PM TOM/elma TD: 08/22/2016 09:48 JOB #: [id number] MEDICAL IMAGING REPORT Page 1 of 1 COPY
== END | disposition home or self-care (01) ==
LOC: CCAT 15:30
DX: J18.9 Pneumonia, unspecified organism (principal); J43.9 Emphysema, unspecified
CPT/HCPCS: 71250

== ENCOUNTER → 2016-11-23 | Outpatient (CLI) | payer BC | END | disposition home or self-care (01) | LOC: CECH 08:40 | DX: I50.22 Chronic systolic (congestive) heart failure (principal); I51.7 Cardiomegaly; I35.1 Nonrheumatic aortic (valve) insufficiency; I34.0 Nonrheumatic mitral (valve) insufficiency | CPT/HCPCS: 93306 ==

== ENCOUNTER → 2016-11-28 | Outpatient (CLI) | payer BC ==
--- NOTE | ~2016-11-28 | CR63 ---
[facility]. [facility] A Service of [facility] RADIOLOGY TEXT RESULTS PATIENT: CONSUELO JOEL LOCATION: [facility] : 58 UNIT #: [id number] AGE: [address]: Thai Acevedo MD SEX: F ORDER DR: [id number] [address] [address] [id number] O MR#: [id number] Acc #: [id number] NAME: CONSUELO JOEL : 1960 SEX: F STUDY DATE/TIME: 11/28/2016 15:31 UNIT: [facility] ROOM: STUDY DESCRIPTION: CR Chest 2 View Attending Physician: Thai Acevedo M.D. Referring Physician: Thai Acevedo M.D. Ordering Physician: Thai Acevedo M.D. Primary Care Physician: Thai Acevedo M.D. MEDICAL IMAGING REPORT This report is preliminary unless electronic signature is present. EXAM PA and lateral chest. HISTORY Cough for two days and congestion. COMPARISON 07/05/2016. FINDINGS PA and lateral views of the chest were obtained. The heart size and vascularity are normal. Lungs are clear. The bones are unremarkable. IMPRESSION No active disease. Dictated by... Henrry Willingham M.D. THIS IS AN ELECTRONICALLY VERIFIED REPORT Henrry Willingham M.D. at 11/29/2016 1:30 PM FEL/gz TD: 11/29/2016 10:05 JOB #: [id number] MEDICAL IMAGING REPORT Page 1 of 1
== END | disposition home or self-care (01) ==
LOC: SRAD 15:24
DX: R05 Cough (principal)
CPT/HCPCS: 71020